=== PATIENT | male | born 1975 | race Two or more races ===

== ENCOUNTER 2023-06-07 01:10 | Emergency (ER) | payer SELFPAY ==
[~2023-06-07] VITALS: Ht 157.5 cm; Wt 75.7 kg
[2023-06-07 01:19] VITALS: BP 152/100; PULSE 68; RESP 16; TEMP 98.1; O2SAT 100
[2023-06-07] MEDS ORDERED: ACETAMINOPHEN EXTRA STRENGTH 500 MG TAB PO ONE (01:40)
[2023-06-07] MEDS ORDERED: TRANEXAMIC ACID 1,000 MG/10 ML VIAL ONE (03:15)
[2023-06-07] MEDS ORDERED: HYDROcodone/APAP 5/325 MG 1 TAB TAB PO ONE (03:15)
[2023-06-07] MEDS ORDERED: BACITRACIN OINT 500 UNITS/GM PKT TP ONE (03:25)
[2023-06-07] MEDS ORDERED: TRANEXAMIC ACID 1,000 MG/10 ML VIAL MC ONE (03:25)
[2023-06-07] MEDS ORDERED: ACET-10509 PO (05:03)
[2023-06-07] MEDS ORDERED: BACI-418 TP (05:03)
[2023-06-07 05:20] VITALS: BP 140/80; PULSE 68; RESP 16; TEMP 98.1; O2SAT 100
== END 2023-06-07 05:21 | disposition home or self-care (01) ==
LOC: MED 01:10
DX: S01.80XA Unspecified open wound of other part of head, initial encounter (principal); Z79.899 Other long term (current) drug therapy; Z79.2 Long term (current) use of antibiotics; Y08.89XA Assault by other specified means, initial encounter; Y93.89 Activity, other specified; Y92.89 Other specified places as the place of occurrence of the external cause; Y99.8 Other external cause status
CPT/HCPCS: 70450; 70486; 99284; J3490